=== PATIENT | female | born 1955 | race Caucasian/White ===

== ENCOUNTER 2017-06-15 23:24 | Emergency (ER) | payer SELFPAY ==
[~2017-06-15] VITALS: Ht 157.5 cm; Wt 82.4 kg
[~2017-06-15 23:24] MED LIST: HYDR25TA6 PO; LEVO125T75 PO
[2017-06-16 00:29] VITALS: Ht 157.5 cm; Wt 82.4 kg
== END 2017-06-16 00:45 | disposition left against medical advice (07) ==
LOC: E/R 23:24
DX: Z53.21 Procedure and treatment not carried out due to patient leaving prior to being seen by health care provider (principal)